=== PATIENT | male | born 1995 | race Caucasian/White ===

== ENCOUNTER 2016-04-28 09:07 | Emergency (ER) | payer MEDICAID ==
[~2016-04-28] VITALS: Ht 165.1 cm; Wt 75.0 kg
[2016-04-28 09:29] VITALS: BP 142/81
== END 2016-04-28 10:38 | disposition home or self-care (01) ==
LOC: ER 10:33
DX: Z48.01 Encounter for change or removal of surgical wound dressing (principal); F17.200 Nicotine dependence, unspecified, uncomplicated; F12.10 Cannabis abuse, uncomplicated
CPT/HCPCS: 99282; 99283

== ENCOUNTER 2016-05-06 11:04 | Emergency (ER) | payer MEDICAID ==
[~2016-05-06] VITALS: Ht 165.1 cm; Wt 77.0 kg
[2016-05-06 11:17] VITALS: BP 136/83
== END 2016-05-06 15:16 | disposition home or self-care (01) ==
LOC: ER 12:25
DX: S61.011D Laceration without foreign body of right thumb without damage to nail, subsequent encounter (principal); F12.10 Cannabis abuse, uncomplicated; F17.200 Nicotine dependence, unspecified, uncomplicated; X58.XXXD Exposure to other specified factors, subsequent encounter; Y99.8 Other external cause status; Y92.89 Other specified places as the place of occurrence of the external cause
CPT/HCPCS: 99281; Z7610